=== PATIENT | male | born 1985 | race Caucasian/White ===

== ENCOUNTER 2019-12-17 21:47 | Inpatient (IN) ==
[2019-12-17] MEDS ORDERED: SODIUM CHLORIDE 0.9% 1,000 ML IV STA ×2 (22:34→23:37)
[2019-12-17] MEDS ORDERED: ONDANSETRON 4 MG/2 ML VIAL IV STA (22:34)
[2019-12-17 22:59] LABS: Basophils % 0.2 % (0.0-0.8); Hematocrit 49.5 VOL% (42.0-52.0); Hemoglobin 16.2 GM/DL (14.0-18.0); Immature Granulocytes % 0.5 %; Immature Granulocytes Absolute 0.05 #; Lymphocytes % 10.5 % (21.2-54.2); Mean Corpuscular HGB Conc 32.7 GM/DL (32-36); Mean Corpuscular Volume 84.9 FL (87-102); Mean Platelet Volume 11.8 FL (9.6-12.0); Monocytes % 8.1 % (1.7-12.7); Neutrophils % 80.7 % (38.7-73.9); Platelet Count 266 T/CUMM (130-400); Red Blood Count 5.83 MC/CUMM (3.8-5.5); Red Cell Distribution Width 13.8 % (9.3-17.3); White Blood Count 9.6 T/CUMM (4-12)
[2019-12-17 23:23] LABS: Albumin 4.6 G/DL (3.4-5.0); Bilirubin,Total 0.5 MG/DL (0.2-1.0); Calcium 9.6 MG/DL (8.5-10.1); Osmolality,Calculated 266.9 MOS/KG (273-304); Total Protein 9.1 G/DL (6.4-8.3)
[2019-12-17 23:51] LABS: Allen Test Positive
[2019-12-17 23:56] LABS: ABG Base Excess -23.3 MMOL/L (-2.5-2.5); ABG HCO3 8.9 MMOL/L (20-26); ABG Oxygen Saturation 98.6 % (95-100); ABG TCO2 4.7 MMOL/L (23-27)
[2019-12-17 23:57] LABS: ABG PCO2 15.1 MM HG (35-48)
[2019-12-18] MEDS ORDERED: POTASSIUM CHLORIDE RIDER 10 MEQ in PREMIX 1 EACH IV PRN (00:40)
[2019-12-18] MEDS ORDERED: GLUCAGON 1 MG VIAL IM PRN (00:40)
[2019-12-18] MEDS ORDERED: DEXTROSE 50% 25 GM/50 ML VIAL IV PRN ×3 (00:40)
[2019-12-18] MEDS ORDERED: MAGNESIUM SULF RIDER 4 GM in PREMIX 1 EACH IV PRN (00:40)
[2019-12-18] MEDS ORDERED: SODIUM PHOSPHATE INJ 17.5 MMOL in SODIUM CHLORIDE 0.9% 250 ML IV PRN (00:40)
[2019-12-18] MEDS ORDERED: INSULIN REGULAR 100 UNIT/ML IV ONE ×2 (00:40→03:15)
[2019-12-18] MEDS ORDERED: INSULIN REGULAR DRIP 100 ML IV SCH (01:00)
[2019-12-18] MEDS ORDERED: ONDANSETRON 4 MG/2 ML VIAL IV PRN (01:48)
[2019-12-18] MEDS: SODIUM CHLORIDE 0.9% 1,000 ML IV SCH ×4 (01:55→11:53)
[2019-12-18] MEDS: DEXT 5% NACL 0.45% KCL 20 MEQ 20 MEQ/1,000 ML BAG IV SCH ×2 (01:55→05:39)
[2019-12-18 02:57] LABS: Basophils % 0.2 % (0.0-0.8); Hematocrit 35.2 VOL% (42.0-52.0); Immature Granulocytes % 0.7 %; Immature Granulocytes Absolute 0.06 #; Lymphocytes # 1.2 10*3/uL (1.4-4.0); Lymphocytes % 13.7 % (21.2-54.2); Mean Corpuscular HGB Conc 32.4 GM/DL (32-36); Mean Corpuscular Volume 86.3 FL (87-102); Mean Platelet Volume 11.7 FL (9.6-12.0); Monocytes % 9.2 % (1.7-12.7); Neutrophils % 76.2 % (38.7-73.9); Red Cell Distribution Width 13.7 % (9.3-17.3); White Blood Count 8.5 T/CUMM (4-12)
[2019-12-18 03:04] LABS: Hemoglobin 11.4 GM/DL (14.0-18.0); Platelet Count 179 T/CUMM (130-400); Red Blood Count 4.08 MC/CUMM (3.8-5.5)
[2019-12-18 03:13] LABS: ABG Base Excess -20.6 MMOL/L (-2.5-2.5); ABG Oxygen Saturation 98.5 % (95-100); Allen Test Positive; Pt O2 Delivery Device Room Air
[2019-12-18 03:29] LABS: ABG PCO2 17.2 MM HG (35-48)
[2019-12-18 03:30] LABS: ABG PH 7.195 (7.35-7.45)
[2019-12-18 04:03] LABS: Risk Ratio 5.51; VLDL CHOLESTEROL 20.4 MG/DL
[2019-12-18] MEDS: MAGNESIUM SULF RIDER 2 GM in PREMIX 1 EACH IV PRN ×2 (04:08→05:43)
[2019-12-18 04:26] LABS: Apearance,Urine CLEAR (Clear); Bacteria,Urine Occasional /HPF (Few); Bilirubin,Urine Negative (Negative); Blood, Urine Moderate mg/dL (Negative); Glucose,Urine (UA) >=500 mg/dL (Negative); Ketones,Urine 80 mg/dL (Negative); Mucus,Urine Occasional /LPF (Occasional); Nitrite,Urine Negative (Negative); Protein,Urine Negative; RBC,Urine 1 /HPF (0-4); Squamous Epithelial Cell,Urine Occasional /HPF (0-10); Urine Color Straw (Yellow); Urine Urobilinogen < 2.0 EU/DL (0.2-1.0); WBC,Urine <1 /HPF (0-6)
[2019-12-18 04:39] LABS: Calcium 8.1 MG/DL (8.5-10.1)
[2019-12-18 04:40] LABS: Osmolality,Calculated 266.2 MOS/KG (273-304)
[2019-12-18 05:20] LABS: ABG Base Excess -15.9 MMOL/L (-2.5-2.5); ABG HCO3 8.9 MMOL/L (20-26); ABG Oxygen Saturation 98.4 % (95-100); ABG PH 7.261 (7.35-7.45); ABG TCO2 9.5 MMOL/L (23-27); Allen Test Positive; Pt O2 Delivery Device Room Air
[2019-12-18 05:22] LABS: ABG PCO2 20.3 MM HG (35-48)
[2019-12-18] MEDS ORDERED: DEXTROSE 50% 25 GM/50 ML VIAL IV ONE (05:28)
[2019-12-18 06:12] LABS: Free T4 (Free Thyroxine) 0.67 NG/DL (0.76-1.46); Thyroid Stimulating Hormone 0.326 uIU/ml (0.358-3.74)
[2019-12-18 06:45] LABS: ABG Base Excess -14.9 MMOL/L (-2.5-2.5); ABG HCO3 13.3 MMOL/L (20-26); ABG Oxygen Saturation 98.9 % (95-100); ABG PCO2 24.6 MM HG (35-48); ABG PH 7.259 (7.35-7.45); ABG TCO2 9.9 MMOL/L (23-27); Allen Test Positive; Pt O2 Delivery Device Room Air
[2019-12-18] MEDS ORDERED: MAGNESIUM SULF RIDER 4 GM in PREMIX 1 EACH IV ONE (08:02)
[2019-12-18] MEDS: ENOXAPARIN 40 MG/0.4 ML SYRINGE SUBCUT SCH (08:40)
[2019-12-18] MEDS ORDERED: MAGNESIUM SULF RIDER 2 GM in PREMIX 1 EACH IV ONE (10:17)
[2019-12-18] MEDS: DEXTROSE 5% 1,000 ML IV SCH ×2 (10:29→11:36)
[2019-12-18 13:19] LABS: Calcium 7.6 MG/DL (8.5-10.1); Osmolality,Calculated 267.1 MOS/KG (273-304)
[2019-12-18] MEDS: INSULIN GLARGINE 100 UNIT/ML SUBCUT SCH (14:34)
[2019-12-18] MEDS: LACTATED RINGERS 1,000 ML IV SCH ×2 (14:47→23:59)
[2019-12-18] MEDS: POTASSIUM CHLORIDE 20 MEQ TABLET PO SCH ×3 (14:53→22:37)
[2019-12-18] MEDS ORDERED: ACETAMINOPHEN 325 MG TABLET PO PRN (15:18)
[2019-12-18] MEDS: INSULIN LISPRO 100 UNIT/ML SUBCUT SCH ×2 (16:05→19:40)
[2019-12-18 18:24] LABS: Calcium 8.1 MG/DL (8.5-10.1); Osmolality,Calculated 273.1 MOS/KG (273-304)
[2019-12-19] MEDS: POTASSIUM CHLORIDE 20 MEQ TABLET PO SCH ×6 (03:18→21:33)
[2019-12-19 04:08] LABS: Calcium 8.1 MG/DL (8.5-10.1); Osmolality,Calculated 276.7 MOS/KG (273-304)
[2019-12-19] MEDS: INSULIN LISPRO 100 UNIT/ML SUBCUT SCH ×5 (04:22→21:32)
[2019-12-19] MEDS: ENOXAPARIN 40 MG/0.4 ML SYRINGE SUBCUT SCH (08:31)
[2019-12-19] MEDS: INSULIN GLARGINE 100 UNIT/ML SUBCUT SCH (08:31)
[2019-12-20 06:17] LABS: Calcium 8.7 MG/DL (8.5-10.1); Osmolality,Calculated 273.7 MOS/KG (273-304)
[2019-12-20] MEDS: ENOXAPARIN 40 MG/0.4 ML SYRINGE SUBCUT SCH (09:38)
[2019-12-20] MEDS: INSULIN GLARGINE 100 UNIT/ML SUBCUT SCH (09:38)
[2019-12-20] MEDS: INSULIN LISPRO 100 UNIT/ML SUBCUT SCH ×2 (09:39→12:08)
[2019-12-20] MEDS ORDERED: POTASSIUM CHLORIDE 20 MEQ TABLET PO PRN (09:46)
[2019-12-20 11:41] VITALS: BP 116/89
[2019-12-21] MEDS ORDERED: ROSUVASTATIN 20 MG TABLET PO SCH (09:00)
== END 2019-12-20 15:39 | disposition home or self-care (01) | DRG 638 ==
LOC: N.ED 21:47 → SUATTDRO 12-18 00:40 → N.EDINP 12-18 00:40 → N.ICU 12-18 01:16 → N.TELES 12-19 10:53
PROVIDERS: ADMIT Internal Medicine; ATTEND Internal Medicine